=== PATIENT | male | born 1955 | race Caucasian/White ===

== ENCOUNTER 2019-06-29 09:51 | Emergency (ER) | payer BC ==
[~2019-06-29] VITALS: Ht 188 cm; Wt 106.8 kg
[~2019-06-29 09:51] MED LIST: NO HOME MEDICATIONS; NORCO 325 MG-51 TAB PO; TAMIFLU 75MG75 MG PO; ZITHROMAX 250M250 MG PO
[2019-06-29 10:00] VITALS: TEMP 98.5
[2019-06-29] MEDS ORDERED: VITAMIN D31000 I1 PO (10:20)
[2019-06-29] MEDS ORDERED: CENTRUM SILVER1 TAB (10:21)
[2019-06-29] MEDS ORDERED: OMEGA-3 1000 MG1 CAP PO (10:21)
[2019-06-29] MEDS ORDERED: ZOFRAN ODT8 MG PO (11:42)
[2019-06-29 11:53] VITALS: BP 125/80; PULSE 97
== END 2019-06-29 11:58 | disposition home or self-care (01) ==
LOC: COL.ER 09:51
DX: S06.0X0A Concussion without loss of consciousness, initial encounter (principal); R40.2412 Glasgow coma scale score 13-15, at arrival to emergency department; F17.210 Nicotine dependence, cigarettes, uncomplicated; Z90.89 Acquired absence of other organs; W22.8XXA Striking against or struck by other objects, initial encounter; Y92.59 Other trade areas as the place of occurrence of the external cause